=== PATIENT | female | born 1955 | race Caucasian/White ===

== ENCOUNTER 2018-11-07 11:28 | Emergency (ER) | payer MEDICARE, BC ==
[~2018-11-07] VITALS: Ht 149.9 cm; Wt 43.1 kg
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
[2018-11-07] MEDS ORDERED: IBUPROFEN 400 MG TABLET ONE (11:48)
[2018-11-07] MEDS ORDERED: IBUPROFEN 400 MG TABLET PO ONE (12:00)
[2018-11-07 13:12] VITALS: BP 127/72
--- NOTE | 2018-11-07 13:15 | NUR ---
Patient discharged to home in stable condition. Written and verbal after care instructions given. Patient verbalizes understanding of instruction.
== END 2018-11-07 13:14 | disposition home or self-care (01) ==
LOC: ER 11:30
DX: S22.41XA Multiple fractures of ribs, right side, initial encounter for closed fracture (principal); Z88.1 Allergy status to other antibiotic agents; Z88.6 Allergy status to analgesic agent; V49.49XA Driver injured in collision with other motor vehicles in traffic accident, initial encounter; Y93.89 Activity, other specified; Y92.410 Unspecified street and highway as the place of occurrence of the external cause; Y99.8 Other external cause status
CPT/HCPCS: 71100; 99283; A4606

== ENCOUNTER 2022-08-20 10:29 | Emergency (ER) | payer MEDICARE, BC ==
[~2022-08-20] VITALS: Ht 149.9 cm; Wt 49.9 kg
--- NOTE | 2022-08-20 10:47 | NUR ---
TO ER BED 16, 2 EPISODE OF "COUGHING/SPITTING OUT BLOOD" YESTERDAY AND THIS MORNING. REQUESTING CHEST XRAY. VSS STABLE. DENIES SOB, AAOX3, BREATHING EVEN AND NON LABORED, CONNECTED TO MONITOR, AWAITING MD AGOSTO
[2022-08-20 11:16] LABS: BASOPHILS # (AUTO) 0.1 K/uL (0.0-0.2); BASOPHILS % (AUTO) 0.8 % (0.0-2.0); EOSINOPHILS % (AUTO) 2.4 % (0.0-6.0); HEMATOCRIT 46 % (33-45); HEMOGLOBIN 14.9 g/dL (11.5-14.8); LYMPHOCYTES # (AUTO) 1.5 K/uL (0.8-4.8); MEAN CORPUSCULAR HGB CONC 33 g/dl (31.0-36.0); MEAN CORPUSCULAR VOLUME 85 fL (82-100); MONOCYTES # (AUTO) 0.4 K/uL (0.1-1.30); MONOCYTES % (AUTO) 6.7 % (2.0-12.0); NEUTROPHILS # (AUTO) 4.2 K/uL (1.8-8.9); NEUTROPHILS % (AUTO) 67.1 % (43.0-81.0); PLATELET COUNT (AUTO) 220 K/uL (150-450); RED BLOOD CELL COUNT(AUTO) 5.34 MIL/uL (4.0-5.2); WHITE BLOOD COUNT (AUTO) 6.3 K/uL (4.3-11.0)
[2022-08-20 11:40] LABS: CALCIUM, SERUM 9.1 mg/dL (8.5-10.1); CREATININE 0.7 mg/dL (0.6-1.3); POTASSIUM 3.8 mmol/L (3.5-5.1)
[2022-08-20 11:45] LABS: ALBUMIN 3.7 g/dL (3.4-5.0); BILIRUBIN,TOTAL 0.4 mg/dL (0.2-1.0)
[2022-08-20] MEDS ORDERED: IV NS 0.9% 250 ML IV ONE (11:47)
[2022-08-20] MEDS ORDERED: IOHEXOL-300 100 ML VIAL IV ONE (11:47)
--- NOTE | 2022-08-20 11:58 | NUR ---
TAKEN TO CT VIA IZZY
[2022-08-20] MEDS ORDERED: BENZ-13 PO (14:17)
[2022-08-20] MEDS ORDERED: GUAI1TBM19 PO (14:17)
--- NOTE | 2022-08-20 14:32 | NUR ---
Patient discharged to home in stable condition. Written and verbal after care instructions given. Patient verbalizes understanding of instruction.
[2022-08-20 14:41] VITALS: BP 141/84
== END 2022-08-20 14:41 | disposition home or self-care (01) ==
LOC: ER 10:34
DX: R04.2 Hemoptysis (principal); J44.9 Chronic obstructive pulmonary disease, unspecified; Z88.8 Allergy status to other drugs, medicaments and biological substances; Z79.899 Other long term (current) drug therapy
CPT/HCPCS: 99285; 71260; 85025; 36415; 80053; 85730; J7050; Q9967